=== PATIENT | female | born 1980 | race American Indian/Alaskan Native ===

== ENCOUNTER 2022-08-06 14:11 | Outpatient (CLI) | payer MEDICAID ==
--- NOTE | 2022-08-06 16:55 | Vascular Lab Report ---
DUPLEX DOPPLER LOWER EXTREMITY VEINS, RIGHT INDICATION / CLINICAL INFORMATION: M79.604 PAIN IN RIGHT LEG. TECHNIQUE: Duplex doppler imaging was performed through the veins of the right lower extremity using venous compression and other maneuvers. COMPARISON: None available. FINDINGS: RIGHT COMMON FEMORAL VEIN: Negative. RIGHT FEMORAL VEIN: Negative. RIGHT POPLITEAL VEIN: Negative. RIGHT CALF VEINS: Negative. ADDITIONAL FINDINGS: None. IMPRESSION: 1. No sonographic evidence for DVT in the right lower extremity. Scribed by: Anastasia Poon RDMS, HERNANDEZ, HERBERTH Scribed: 08/06/2022 3:34 PM I have reviewed the images, agree with this report, and edited this report as needed. Signer Name: Madelyn Fountain MD Signed: 08/06/2022 4:51 PM Workstation Name: [id number]
== END 2022-08-06 14:12 | disposition home or self-care (01) ==
LOC: VAS 14:11
DX: M79.604 Pain in right leg (principal)